=== PATIENT | female | born 1935 | race Caucasian/White ===

== ENCOUNTER 2016-11-12 07:38 | Day surgery (SDC) | payer OTHER ==
[~2016-11-12] VITALS: Ht 165.1 cm; Wt 136.0 kg
[~2016-11-12 07:38] MED LIST: ACETAMINOPHEN325 M1 PO; ALPRAZOLAM0.25 M2 PO; ALPRAZOLAM0.5 MG PO; AMLODIPINE BESY10 MG PO; AMLODIPINE BESYL5 MG PO; ARTIFICIAL TEAR15 M1 BOTH EYES; ASPIRIN325 MG PO; Advair HFA 115/21 IH; BENADRYL25 MG PO; BISACODYL5 MG PO; CALCIUM + D 601 EACH PO; CYMBALTA30 MG PO; DULCOLAX10 MG PR; DUONEB 2.5-0.5 M3 ML AEROSOL; DYAZIDE, MA1 CAPSULE PO; ELIQUIS2.5 MG PO; FAMOTIDINE20 MG PO; FLUORIDE TABS PO; FUROSEMIDE20 MG PO; FUROSEMIDE40 MG PO; FUROSEMIDE80 MG PO; GLUCOSAMINE1000 MG PO; HEPARIN SO5000 UNITS SC; HYDROCODON-ACE1 EAC7 PO; KLOR-CON SPRIN10 MEQ PO; LASIX10 MG PO; LASIX20 MG PO; LEVAQUIN750 MG PO; LEXAPRO10 MG PO; LISINOPRIL40 MG PO; LO-DOSE ASPIRIN81 M2 PO; LOPRESSOR25 MG PO; LOVENOX100 MG/1 M SC; MELATIN3 MG PO; METOLAZONE2.5 MG PO; METOPROLOL TART25 MG PO; MILK OF MAGN PO; MIRALAX255 GM PO; NEURONTIN100 MG PO; NORCO 5/3251 TABLET PO; NORVASC5 MG PO; NYAMYC60 GM TP; POTASSIUM CHLO20 ME2 PO; PREDNISONE10 MG PO; PREVACID30 MG PO; PROZAC20 MG PO; REQUIP2 MG PO; RISPERDAL2 M1 PO; RISPERDAL2 MG PO; RISPERIDONE2 MG PO; ROPINIROLE HCL2 MG PO; SIMVASTATIN5 MG PO; TRAMADOL HCL50 MG PO; TYLENOL ARTHRI650 MG PO; Tylenol Regular Stre PO; ULTRACET1 TABLET PO; ZESTRIL,PRINIVI40 MG PO; [UNRECOGNIZED DRUG - REMARK] PO; predniSONE PO
[2016-11-12 09:30] VITALS: BP 167/88
[2016-11-12 09:40] LABS: METH RESISTANT S AUREUS PCR NEGATIVE (NEGATIVE)
[2016-11-12 09:58] LABS: PROBE CHECK PASS; SPECIMEN PROCESSING CONTROL PASS
[2016-11-12] MEDS ORDERED: NORCO 5/3251 TABLET PO (14:19)
[2016-11-12 18:35] VITALS: BP 125/66
[2016-11-12 19:35] VITALS: BP 143/75
[2016-11-13 00:09] VITALS: BP 124/63
[2016-11-13 03:18] VITALS: BP 130/59
[2016-11-13 07:25] VITALS: BP 128/68
== END 2016-11-13 11:51 ==
LOC: SDC 07:38 → 2SOUTH 16:11 → 2EASTP 16:11
PROVIDERS: Surgery
DX: C50.911 Malignant neoplasm of unspecified site of right female breast (principal); C77.3 Secondary and unspecified malignant neoplasm of axilla and upper limb lymph nodes; I10 Essential (primary) hypertension; F41.8 Other specified anxiety disorders; E78.5 Hyperlipidemia, unspecified; E66.01 Morbid (severe) obesity due to excess calories; Z68.42 Body mass index [BMI] 45.0-49.9, adult; I87.8 Other specified disorders of veins; Z88.0 Allergy status to penicillin; Z79.01 Long term (current) use of anticoagulants; Z86.718 Personal history of other venous thrombosis and embolism
CPT/HCPCS: 78195; 87641; 88305; 88307; 94002; 94799; 99202; A9541; G0378; J3010; J3370; J7120; J7512

== ENCOUNTER 2017-06-01 16:22 | Inpatient (IN) | payer OTHER ==
[~2017-06-01] VITALS: Ht 165.1 cm; Wt 153.5 kg
[2017-06-01 16:57] LABS: HEMATOCRIT 46.5 % (36.0-46.0); HEMOGLOBIN 14.7 G/DL (11.9-15.5); MCH 29.9 PG (29.0-34.0); MCHC 31.6 G/DL (30.0-36.0); MCV 94.5 FL (83-99); PLATELET COUNT 108 K/uL (156-360); RBC DIS.WIDTH-CV 14.4 % (11.8-14.6); RBC DIS.WIDTH-SD 49.8 % (39-53); RED BLOOD COUNT 4.92 M/uL (3.80-5.20); WHITE BLOOD COUNT 6.5 K/uL (4.1-10.2)
[2017-06-01 17:03] LABS: INTER. NORMALIZED RATIO 1.2
[2017-06-01 17:04] LABS: ALBUMIN 3.6 g/dL (3.2-4.8)
[2017-06-01 17:05] LABS: CHLORIDE 90 mEq/L (99-109); POTASSIUM 4.9 mEq/L (3.7-5.4); SODIUM 144 mEq/L (136-147)
[2017-06-01 17:06] LABS: PTT 23.3 SEC (25-37)
[2017-06-01 17:07] LABS: GLUCOSE 165 mg/dL (70-99)
[2017-06-01 17:09] LABS: TOTAL BILIRUBIN 0.7 mg/dL (0.0-1.0)
[2017-06-01 17:10] LABS: ALKALINE PHOSPHATASE 63 IU/L (3-129)
[2017-06-01 17:11] LABS: CREATININE 1.2 mg/dL (0.6-1.3); GFR ESTIMATE (CALCULATED) 45 mL/min/
[2017-06-01 17:12] LABS: AST (GOT) 29 IU/L (2-34); UREA NITROGEN (BUN) 29 mg/dL (9-23)
[2017-06-01 17:13] LABS: ALT (GPT) 26 IU/L (3-49); CARBON DIOXIDE (BICARBONATE) > 40.0 mEq/L (20-31)
[2017-06-01 17:20] LABS: TROP-I INTERPRETATION NEGATIVE; TROPONIN-I 0.02 ng/mL (0.0-0.30)
[2017-06-01 17:21] LABS: APPEARANCE CLEAR ((CLEAR)); BILIRUBIN NEGATIVE; BLOOD MODERATE; COLOR YELLOW ((YELLOW)); GLUCOSE (STRIP) NEGATIVE; KETONES NEGATIVE; LEUKOCYTES LARGE; NITRITE NEGATIVE; PROTEIN (STRIP) NEGATIVE; SPECIFIC GRAVITY 1.008 (1.000-1.030); UROBILINOGEN 0.2 MG/DL (0.2-1.0)
[2017-06-01 17:29] LABS: BACTERIA RARE /HPF; EPITHELIAL CELLS RARE /HPF; MUCUS TRACE /LPF; RED BLOOD CELLS 15-20 /HPF (0-5); UCUL ADDED? YES; WHITE BLOOD CELLS 30-40 /HPF (0-5)
[2017-06-01 18:03] LABS: BASE EXCESS 20.9 mEq/L (-3 to +3); BICARBONATE 50.8 mEq/L (22-26); CARBOXY HGB 2.3 % (0-5); COMMENTS - BLOOD GASES A+C+; DEVICE NRBM; FI02 100 %; O2 FLOW 15 L/MIN; PCO2 82 mm Hg (35-45); PO2 75 mm Hg (80-100); SITE LR; TOTAL RESP RATE 16 resp/min
[2017-06-01] MEDS ORDERED: AMLODIPINE BESY10 MG PO (19:28)
[2017-06-01] MEDS ORDERED: CYMBALTA30 MG PO (19:29)
[2017-06-01] MEDS ORDERED: FUROSEMIDE80 MG PO (19:30)
[2017-06-01] MEDS ORDERED: LETROZOLE2.5 MG PO (19:30)
[2017-06-01] MEDS ORDERED: MELATONIN3 M4 PO (19:31)
[2017-06-01] MEDS ORDERED: METOLAZONE2.5 MG PO (19:32)
[2017-06-01] MEDS ORDERED: NEURONTIN100 MG PO ×2 (19:32→20:05)
[2017-06-01] MEDS ORDERED: PREDNISONE10 MG PO (19:33)
[2017-06-01] MEDS ORDERED: RANITIDINE HCL150 MG PO (19:34)
[2017-06-01] MEDS ORDERED: RISPERDAL0.5 MG PO (19:35)
[2017-06-01] MEDS ORDERED: RISPERDAL2 MG PO (19:37)
[2017-06-01] MEDS ORDERED: ROPINIROLE HCL2 MG PO (19:38)
[2017-06-01] MEDS ORDERED: PURE & GENTLE E15 ML BOTH EYES (19:40)
[2017-06-01] MEDS ORDERED: ELIQUIS2.5 MG PO (19:55)
[2017-06-01] MEDS ORDERED: LOPRESSOR25 MG PO (19:56)
[2017-06-01] MEDS ORDERED: NORCO 5/3251 TABLET PO (19:57)
[2017-06-01] MEDS ORDERED: POTASSIUM CHLO20 ME2 PO (19:59)
[2017-06-01] MEDS ORDERED: ACETAMINOPHEN325 M1 PO (20:00)
[2017-06-01] MEDS ORDERED: DULCOLAX10 MG PR (20:01)
[2017-06-01] MEDS ORDERED: MILK OF MAGN PO (20:02)
[2017-06-01] MEDS ORDERED: MIRALAX17 GM PO (20:03)
[2017-06-01 22:00] VITALS: BP 137/67
[2017-06-02 03:44] VITALS: BP 136/75
[2017-06-02 05:12] LABS: HEMATOCRIT 42.4 % (36.0-46.0); HEMOGLOBIN 13.1 G/DL (11.9-15.5); MCH 29.1 PG (29.0-34.0); MCHC 30.9 G/DL (30.0-36.0); MCV 94.2 FL (83-99); PLATELET COUNT 109 K/uL (156-360); RBC DIS.WIDTH-CV 14.5 % (11.8-14.6); RBC DIS.WIDTH-SD 50.4 % (39-53)
[2017-06-02 06:03] LABS: CHLORIDE 94 MEQ/L (99-109); CREATININE 0.8 MG/DL (0.6-1.3); GFR ESTIMATE (CALCULATED) > 59 mL/min/; GLUCOSE 92 mg/dL (70-99); POTASSIUM 3.5 MEQ/L (3.7-5.4); SODIUM 144 MEQ/L (136-147); UREA NITROGEN (BUN) 24 mg/dL (9-23)
[2017-06-02 06:04] LABS: CARBON DIOXIDE (BICARBONATE) > 40.0 MEQ/L (20-31)
[2017-06-02 08:19] VITALS: BP 141/74
[2017-06-02 12:27] VITALS: BP 138/61
[2017-06-02 16:40] VITALS: BP 135/67
[2017-06-02 20:00] VITALS: BP 148/76
[2017-06-02 23:03] VITALS: BP 135/67
[2017-06-03 04:23] VITALS: BP 124/82
[2017-06-03 05:19] LABS: BASOPHIL (%) 0.4 % (0-1); EOSINOPHIL (%) 1.7 % (0-5); EOSINOPHIL COUNT 0.1 K/uL (0-0.3); HEMATOCRIT 40.3 % (36.0-46.0); HEMOGLOBIN 12.5 G/DL (11.9-15.5); IMMATURE GRANULOCYTE (%) 0.8 % (0.0-0.7); LYMPHOCYTE (%) 13.9 % (15-42); LYMPHOCYTE COUNT 0.7 K/uL (1.0-2.8); MCH 29.6 PG (29.0-34.0); MCV 95.5 FL (83-99); MONOCYTE (%) 12.4 % (3-12); MONOCYTE COUNT 0.7 K/uL (0-0.8); NEUTROPHIL (%) 70.8 % (45-76); NEUTROPHIL COUNT 3.8 K/uL (1.8-6.4); PLATELET COUNT 104 K/uL (156-360); RBC DIS.WIDTH-CV 14.9 % (11.8-14.6); RED BLOOD COUNT 4.22 M/uL (3.80-5.20); WHITE BLOOD COUNT 5.3 K/uL (4.1-10.2)
[2017-06-03 05:46] LABS: CHLORIDE 94 MEQ/L (99-109); GFR ESTIMATE (CALCULATED) 56 mL/min/; GLUCOSE 104 mg/dL (70-99); POTASSIUM 3.4 MEQ/L (3.7-5.4); SODIUM 144 MEQ/L (136-147); UREA NITROGEN (BUN) 24 mg/dL (9-23)
[2017-06-03 05:47] LABS: CARBON DIOXIDE (BICARBONATE) > 40.0 MEQ/L (20-31)
[2017-06-03 07:24] VITALS: BP 156/70
[2017-06-03 12:10] VITALS: BP 144/67
[2017-06-03 15:32] VITALS: BP 142/63
[2017-06-03 18:57] VITALS: BP 139/73
[2017-06-03 23:00] VITALS: BP 152/70
[2017-06-04 03:26] VITALS: BP 122/61
[2017-06-04 07:25] VITALS: BP 130/74
[2017-06-04 10:11] LABS: CHLORIDE 96 MEQ/L (99-109); CREATININE 0.9 MG/DL (0.6-1.3); GFR ESTIMATE (CALCULATED) > 59 mL/min/; GLUCOSE 196 mg/dL (70-99); POTASSIUM 4.2 MEQ/L (3.7-5.4); SODIUM 142 MEQ/L (136-147); UREA NITROGEN (BUN) 22 mg/dL (9-23)
[2017-06-04 11:44] VITALS: BP 129/60
[2017-06-04 15:25] VITALS: BP 120/61
[2017-06-04 20:50] VITALS: BP 134/64
[2017-06-04 23:40] VITALS: BP 134/78
[2017-06-05 03:18] VITALS: BP 143/76
[2017-06-05 07:00] LABS: BASOPHIL (%) 0.2 % (0-1); EOSINOPHIL (%) 2.2 % (0-5); EOSINOPHIL COUNT 0.1 K/uL (0-0.3); HEMATOCRIT 39.7 % (36.0-46.0); HEMOGLOBIN 12.5 G/DL (11.9-15.5); IMMATURE GRANULOCYTE (%) 0.7 % (0.0-0.7); LYMPHOCYTE (%) 12.3 % (15-42); LYMPHOCYTE COUNT 0.7 K/uL (1.0-2.8); MCH 29.6 PG (29.0-34.0); MCHC 31.5 G/DL (30.0-36.0); MCV 93.9 FL (83-99); MONOCYTE (%) 12.6 % (3-12); MONOCYTE COUNT 0.7 K/uL (0-0.8); NEUTROPHIL COUNT 3.9 K/uL (1.8-6.4); PLATELET COUNT 99 K/uL (156-360); RBC DIS.WIDTH-CV 14.7 % (11.8-14.6); RBC DIS.WIDTH-SD 50.4 % (39-53); RED BLOOD COUNT 4.23 M/uL (3.80-5.20); WHITE BLOOD COUNT 5.4 K/uL (4.1-10.2)
[2017-06-05 07:19] LABS: ALBUMIN 3.2 G/DL (3.2-4.8); ALKALINE PHOSPHATASE 50 IU/L (3-129); ALT (GPT) 13 IU/L (3-49); AST (GOT) 15 IU/L (2-34); CHLORIDE 97 MEQ/L (99-109); CREATININE 0.9 MG/DL (0.6-1.3); GFR ESTIMATE (CALCULATED) > 59 mL/min/; GLUCOSE 107 mg/dL (70-99); POTASSIUM 4.2 MEQ/L (3.7-5.4); SODIUM 141 MEQ/L (136-147); TOTAL BILIRUBIN 0.6 MG/DL (0.0-1.0); TOTAL PROTEIN 5.4 G/DL (6.4-8.3); UREA NITROGEN (BUN) 25 mg/dL (9-23)
[2017-06-05 07:35] VITALS: BP 150/76
[2017-06-05 12:03] VITALS: BP 136/75
[2017-06-05] MEDS ORDERED: DUONEB 2.5-0.5 M3 ML AEROSOL (12:19)
[2017-06-05] MEDS ORDERED: LEVAQUIN750 MG PO (12:19)
[2017-06-05 15:44] VITALS: BP 137/64
== END 2017-06-05 16:08 | DRG 82 ==
LOC: EME 16:22 → EDOF 19:55 → 4EAST 19:55 → CANRESERV 19:56 → ENRESERV 19:56 → 4EAST 22:08 → ENRESERV 06-04 16:06 → 3EAST 06-04 20:03
PROVIDERS: Emergency Medicine; Hospitalist; Internal Medicine; Nurse Practitioner Adult Health
DX: S06.6X9A Traumatic subarachnoid hemorrhage with loss of consciousness of unspecified duration, initial encounter (principal); G93.40 Encephalopathy, unspecified; S02.2XXA Fracture of nasal bones, initial encounter for closed fracture; J96.21 Acute and chronic respiratory failure with hypoxia; J44.1 Chronic obstructive pulmonary disease with (acute) exacerbation; I10 Essential (primary) hypertension; J96.22 Acute and chronic respiratory failure with hypercapnia; Z66 Do not resuscitate; Y92.129 Unspecified place in nursing home as the place of occurrence of the external cause; W01.0XXA Fall on same level from slipping, tripping and stumbling without subsequent striking against object, initial encounter; E66.2 Morbid (severe) obesity with alveolar hypoventilation; Z68.43 Body mass index [BMI] 50.0-59.9, adult; E87.3 Alkalosis; H91.90 Unspecified hearing loss, unspecified ear; K08.89 Other specified disorders of teeth and supporting structures; E87.2 Acidosis; F25.9 Schizoaffective disorder, unspecified; E87.6 Hypokalemia; J98.11 Atelectasis; K21.9 Gastro-esophageal reflux disease without esophagitis; Z86.718 Personal history of other venous thrombosis and embolism; Z79.82 Long term (current) use of aspirin; Z79.01 Long term (current) use of anticoagulants; Z79.899 Other long term (current) drug therapy; Z99.81 Dependence on supplemental oxygen; Z72.0 Tobacco use; Z85.3 Personal history of malignant neoplasm of breast
CPT/HCPCS: 36600; 70450; 70486; 71045; 71111; 71260; 72125; 73110; 80048; 80053; 81003; 82803; 82948; 83880; 84484; 85025; 85027; 85610; 85730; 87040; 87086; 87641; 93005; 94010; 94640; 94640 76; 94660; 94760; 94799; 97530 GP; 99202; 99281; 99285; J1956; J7030; J7512

== ENCOUNTER 2017-10-24 14:56 | Emergency (ER) | payer OTHER ==
[~2017-10-24] VITALS: Ht 167.6 cm; Wt 131.1 kg
[~2017-10-24 14:56] MED LIST changes: +LETROZOLE2.5 MG PO; +MELATONIN3 M4 PO; +MIRALAX17 GM PO; +PURE & GENTLE E15 ML BOTH EYES; +RANITIDINE HCL150 MG PO; +RISPERDAL0.5 MG PO
[2017-10-24 17:46] LABS: COMMENTS - BLOOD GASES C+; DEVICE NC; O2 FLOW 4 L/MIN; SITE LR; TOTAL RESP RATE 26 resp/min
[2017-10-24 17:47] LABS: BASE EXCESS 18 mEq/L (-3 to +3); BICARBONATE 49.8 mEq/L (22-26); CARBOXY HGB 2.6 % (0-5); METHEMOGLOBIN 1.1 % (0-1.5); O2 SATURATION (CALCULATED) 96.2 % (95-99); PCO2 99 mm Hg (35-45); PO2 71 mm Hg (80-100); pH 7.31 (7.35-7.45)
[2017-10-24 18:01] LABS: BASOPHIL (%) 0.2 % (0-1); EOSINOPHIL (%) 2.4 % (0-5); EOSINOPHIL COUNT 0.1 K/uL (0-0.3); HEMATOCRIT 48.5 % (36.0-46.0); HEMOGLOBIN 14.6 G/DL (11.9-15.5); IMMATURE GRANULOCYTE (%) 0.4 % (0.0-0.7); LYMPHOCYTE (%) 9.2 % (15-42); LYMPHOCYTE COUNT 0.5 K/uL (1.0-2.8); MCH 29.2 PG (29.0-34.0); MCHC 30.1 G/DL (30.0-36.0); MONOCYTE (%) 8.8 % (3-12); MONOCYTE COUNT 0.4 K/uL (0-0.8); PLATELET COUNT 109 K/uL (156-360); RBC DIS.WIDTH-SD 57.1 % (39-53)
[2017-10-24 18:13] LABS: ALBUMIN 3.4 g/dL (3.2-4.8); CHLORIDE 88 mEq/L (99-109); POTASSIUM 4.5 mEq/L (3.7-5.4)
[2017-10-24 18:16] LABS: GLUCOSE 120 mg/dL (70-99); TOTAL PROTEIN 6.7 g/dL (6.4-8.3)
[2017-10-24 18:18] LABS: TOTAL BILIRUBIN 0.6 mg/dL (0.0-1.0)
[2017-10-24 18:19] LABS: ALKALINE PHOSPHATASE 78 IU/L (3-129); CREATININE 0.9 mg/dL (0.6-1.3); GFR ESTIMATE (CALCULATED) > 59 mL/min/
[2017-10-24 18:20] LABS: UREA NITROGEN (BUN) 11 mg/dL (9-23)
[2017-10-24 18:21] LABS: AST (GOT) 16 IU/L (2-34)
[2017-10-24 18:22] LABS: ALT (GPT) 19 IU/L (3-49)
[2017-10-24 18:24] LABS: TROP-I INTERPRETATION NEGATIVE; TROPONIN-I 0.02 ng/mL (0.0-0.30)
[2017-10-24 18:37] LABS: SODIUM 136 mEq/L (136-147)
[2017-10-24 22:40] VITALS: BP 144/87
== END 2017-10-24 23:08 ==
LOC: EME 14:56
PROVIDERS: Emergency Medicine
DX: R09.02 Hypoxemia (principal); J44.1 Chronic obstructive pulmonary disease with (acute) exacerbation; R06.89 Other abnormalities of breathing; I10 Essential (primary) hypertension; I50.9 Heart failure, unspecified; G47.30 Sleep apnea, unspecified; G43.909 Migraine, unspecified, not intractable, without status migrainosus; K90.41 Non-celiac gluten sensitivity; F41.9 Anxiety disorder, unspecified; F32.9 Major depressive disorder, single episode, unspecified; F31.9 Bipolar disorder, unspecified; Z90.10 Acquired absence of unspecified breast and nipple; Z85.9 Personal history of malignant neoplasm, unspecified; Z88.6 Allergy status to analgesic agent; Z88.0 Allergy status to penicillin; Z88.8 Allergy status to other drugs, medicaments and biological substances; Z91.040 Latex allergy status; Z91.02 Food additives allergy status; Z91.018 Allergy to other foods
CPT/HCPCS: 36600; 71045; 80053; 82803; 83605; 83880; 84484; 85025 91; 87040; 93005; 94644; 99281; 99285